=== PATIENT | male | born 1965 | race Caucasian/White ===

== ENCOUNTER 2020-04-22 19:03 | Emergency (ER) | payer BC, OTHER ==
[2020-04-22 19:27] VITALS: PULSE 95; TEMP 98.5; BMI 31.7
[2020-04-22] MEDS ORDERED: ROSUVASTATIN CA 10 MG TABLET (FP) PO ONE (20:05)
[2020-04-22] MEDS ORDERED: metFORMIN HCL 500 MG TABLET (FP) PO ONE (20:05)
[2020-04-22] MEDS ORDERED: VALSARTAN 40 MG TABLET PO ONE ×2 (20:05→22:20)
[2020-04-22 21:13] LABS: BASO % 0.6 % (0-2.0); EOS % 1.1 % (0-4.5); HEMATOCRIT 48.6 % (35.4-49); HEMOGLOBIN 16.6 GM/dL (11.7-16.9); LYMPH % 21.1 % (8-40); MCH 32.9 pg (25.7-33.7); MCHC 34.2 g/dl (32.0-35.9); MEAN PLT VOLUME 8.1 fl (7.5-11.1); MONO % 4.9 % (3.8-10.2); NEUT % 72.3 % (42.8-82.8); PLATELET COUNT 207 K/MM3 (134-434); RBC 5.06 M/mm3 (4.00-5.60); RDW 13.1 % (11.9-15.9); WHITE BLOOD COUNT 7.6 K/mm3 (4.0-10.0)
[2020-04-22 21:19] LABS: EPI CELLS 3 /uL (0-25.1); HYALINE CASTS 1 /uL (0-3.1); PH,URINE 5.5 (5.0-8.0); URINE APPEARANCE CLEAR; URINE BACTERIA 2 /uL (0-1359); URINE BILIRUBIN NEGATIVE (NEGATIVE); URINE COLOR YELLOW; URINE GLUCOSE (UA) 3+ (NEGATIVE); URINE KETONE 2+ (NEGATIVE); URINE LEUK ESTERASE NEGATIVE (NEGATIVE); URINE NITRITE NEGATIVE (NEGATIVE); URINE PROTEIN 1+ (NEGATIVE); URINE RBC 2 /uL (0-23.9); URINE UROBILINOGEN 0.2 mg/dL (0.2-1.0); URINE WBC 1 /uL (0-25.8)
[2020-04-22] MEDS ORDERED: amLODIPine BESYLATE 10 MG TABLET (FP) PO ONE (21:19)
[2020-04-22] MEDS ORDERED: amLODIPine BESYLATE 5 MG TABLET (FP) ONE (21:23)
[2020-04-22 21:31] LABS: CHLORIDE 99 mmol/L (98-107); POTASSIUM 4.2 mmol/L (3.5-5.1); SODIUM 134 mmol/L (136-145)
[2020-04-22 21:32] LABS: CALCIUM 9.5 mg/dL (8.5-10.1)
[2020-04-22 21:33] LABS: ALBUMIN 4.6 g/dl (3.4-5.0); ANION GAP 7 MMOL/L (8-16); BLOOD UREA NITROGEN 11.4 mg/dL (7-18); CO2 28 mmol/L (21-32); GLUCOSE,RANDOM 208 mg/dL (74-106)
[2020-04-22 21:36] LABS: SGOT/AST 48 U/L (15-37); SGPT/ALT 78 U/L (13-61)
[2020-04-22 21:37] LABS: BILIRUBIN,TOTAL 1.2 mg/dL (0.2-1); TOT PROT 8.3 g/dl (6.4-8.2)
[2020-04-22 21:40] LABS: ALK PHOS 75 U/L (45-117)
[2020-04-22] MEDS ORDERED: KETOROLAC TROMETHAMINE 30 MG/1 ML VIAL IVPUSH ONE (22:20)
[2020-04-22] MEDS ORDERED: METOCLOPRAMIDE HCL INJECTION 10 MG/2 ML VIAL IVPUSH ONE (22:20)
[2020-04-22] MEDS ORDERED: METOCLOPRAMIDE HCL INJECTION 10 MG/2 ML VIAL ONE (22:29)
[2020-04-22] MEDS ORDERED: KETOROLAC TROMETHAMINE 30 MG/1 ML VIAL ONE (22:29)
[2020-04-22 23:26] VITALS: BP 150/108
== END 2020-04-22 23:26 | disposition home or self-care (01) ==
LOC: JER 19:03
PROC: 3E0333Z Introduction of Anti-inflammatory into Peripheral Vein, Percutaneous Approach (ICD-10-PCS; principal; 2020-04-22)
PROC: 3E033GC Introduction of Other Therapeutic Substance into Peripheral Vein, Percutaneous Approach (ICD-10-PCS; 2020-04-22)
DX: I10 Essential (primary) hypertension (principal)
CPT/HCPCS: 36415; 70450-TC; 80053; 81003; 82550; 82962; 84484; 85025; 85730; 87086; 93005; 93010; 99285-25